=== PATIENT | male | born 1965 | race Caucasian/White ===

== ENCOUNTER → 2020-06-14 02:35 | Outpatient (CLI) | payer BC, SELFPAY ==
[2020-06-14 21:58] LABS: SARS-CoV-2 RNA PCR Negative
== END ==
PROVIDERS: PCP Physician Assistant; Visit Provider Internal Medicine Gastroenterology
DX: Z01.812 Encounter for preprocedural laboratory examination (principal); Z20.822 Contact with and (suspected) exposure to COVID-19
CPT/HCPCS: C9803; U0003; U0005

== ENCOUNTER 2020-06-17 00:53 | Day surgery (SDC) | payer BC, SELFPAY ==
[2020-05-29 11:37] VITALS: BMI 26.9
--- NOTE | 2020-06-14 09:34 | WPDANESEPPF ---
Anes - Initial Pre Proc Eval Procedure: Operation Date: 06/17/20 08:30 Proposed Procedures p Screening Colonoscopy - Lencho Angela MD Date/Time: 06/14/20 09:34 Surgeon: Lencho Angela MD Pre Op Diagnosis: Neoplasm Screening Patient Data Age: 54 Gender: M Height: 1.88 m Weight: 95 kg Allergies Allergy/AdvReac Type Severity Reaction Status Date / Time No Known Allergies Allergy Verified 06/17/20 07:06 Home Medications Medication Instructions Recorded Confirmed Type fluticasone propionate 50 1 spray NASAL DAILY 10/26/19 05/29/20 History mcg/actuation nasal spray,suspension lisinopril 20 1 tablet PO DAILY #90 tablet 10/26/19 05/29/20 Rx mg-hydrochlorothiazide 12.5 mg tablet loratadine 10 mg tablet 10 mg PO DAILY 10/26/19 05/29/20 History Patient hx anesthesia problems: none Family hx anesthesia problems: none PMFSH Past Medical History Medical History Allergies BMI 26.0-26.9,adult Colon cancer screening History of colon polyps Mixed hyperlipidemia Primary hypertension Prostate cancer screening Seasonal allergies Family History Family History Father CHF (congestive heart failure) Grandparent Heart failure Grandparent Heart failure Grandparent Acute myocardial infarction Social History Social History Smoking status: Never smoker Alcohol intake: current Drinks per week: 4 Substance use: never Substance use type: does not use Living arrangements: with family Spiritual care concerns: No Anes - Eval Final PreProcedure Day of Procedure 06/14/20 09:34 Patient weight: overweight Heart: regular rate and rhythm Lungs: clear to auscultation and normal air movement Airway: Mallampati scale class II Neurological: alert and oriented Last oral intake: >/= 8 hours ASA classification: II Emergent: no Anesthetic plan: proceed Anesthesia type and monitoring: general GIVS and standard monitoring Informed Consent: The patient's anesthetic plan and its attendant risks and benefits were discussed with the patient/family/POA. Questions were solicited and answers provided to the satisfaction of the patient/family/POA.
[2020-06-17 07:08] VITALS: BP 129/83; PULSE 78; RESP 18; TEMP 36.1; O2SAT 98
[2020-06-17] MEDS: LACTATED RINGERS 1,000 ML 150 ML IV CONT (07:17)
--- NOTE | 2020-06-17 08:13 | PM.HPGS ---
History of Present Illness History of Present Illness Consent: Risks, benefits, and alternatives have been discussed and questions answered. Patient agrees to proceed with procedure. Chief complaint: Neoplasm Screening Narrative: Haresh Guerrier is a 54 year old male with colon polyps 5 years ago. Review of Systems Constitutional: Constitutional: Denies headache(s) and Denies weakness Eyes: Eyes: Denies blurry vision ENT: Reports Normal hearing present, Denies headache(s) and Denies neck pain Cardiovascular: Cardiovascular: Denies chest pain and Denies dyspnea Respiratory: Respiratory: Denies dyspnea Gastrointestinal: Gastrointestinal: Reports no additional gastrointestinal complaints Genitourinary: Genitourinary: Denies dysuria Musculoskeletal: Musculoskeletal: Denies neck pain Integumentary/Breasts: Skin/Breast: Denies dry skin Neurologic: Reports Normal hearing present, Denies headache(s) and Denies weakness Psychiatric: Psychiatric: Denies anxiety Endocrine: Endocrine: Denies change in body appearance Hematologic/Lymphatic: Hematologic/Lymphatic: Denies easy bleeding Allergic/Immunologic: Allergic/Immunologic: Denies urticaria PMFSH Past Medical History Medical History Allergies BMI 26.0-26.9,adult Colon cancer screening History of colon polyps Mixed hyperlipidemia Primary hypertension Prostate cancer screening Seasonal allergies Family History Family History Father CHF (congestive heart failure) Grandparent Heart failure Grandparent Heart failure Grandparent Acute myocardial infarction Social History Social History Smoking status: Never smoker Alcohol intake: current Drinks per week: 4 Substance use: never Substance use type: does not use Living arrangements: with family Spiritual care concerns: No Meds Home Medications and Allergies Home Medications Medication Instructions Recorded Confirmed Type fluticasone propionate 50 1 spray NASAL DAILY 10/26/19 05/29/20 History mcg/actuation nasal spray,suspension lisinopril 20 1 tablet PO DAILY #90 tablet 10/26/19 05/29/20 Rx mg-hydrochlorothiazide 12.5 mg tablet loratadine 10 mg tablet 10 mg PO DAILY 10/26/19 05/29/20 History Allergies Allergy/AdvReac Type Severity Reaction Status Date / Time No Known Allergies Allergy Verified 06/17/20 07:06 Vital Signs Vital Signs - 24 hr 06/17/20 07:08 Temperature 97.0 F L Pulse Rate 78 Respiratory Rate 18 Blood Pressure 129/83 Pulse Oximetry 98 Exam Const: General: comfortable and no acute distress HENMT: General nose exam: Normal nares present Eyes: General: appearance normal, both eyes and all related structures Neck: Neck: no JVD Resp: Auscultation: clear to auscultation bilaterally Cardio: Rate: regular rate Rhythm: regular rhythm GI: Inspection: non-distended GI Palp: Yes Soft to palpation Skin: General skin exam: normal color Neuro: General: gait normal Speech: normal speech Extrem: General: normal to inspection Psych: Mental Status: mental status grossly normal Assessment and Plan Assessment and plan (1) History of colon polyps: Code(s): Z86.010 - Personal history of colonic polyps Status: Acute Assessment and Plan: proceed with colonoscopy
[2020-06-17 08:40] VITALS: BP 114/75; PULSE 73; RESP 22; O2SAT 98
[2020-06-17 08:50] VITALS: BP 124/87; PULSE 68; RESP 15; O2SAT 100
[2020-06-17 09:00] VITALS: BP 121/88; PULSE 65; RESP 16; O2SAT 100
== END 2020-06-17 09:09 | disposition home or self-care (01) ==
PROVIDERS: PCP Physician Assistant; Visit Provider Internal Medicine Gastroenterology
PROC: 0DJD8ZZ Inspection of Lower Intestinal Tract, Via Natural or Artificial Opening Endoscopic (ICD-10-PCS; CPT 45378; principal; 2020-06-17 08:30)
DX: Z12.11 Encounter for screening for malignant neoplasm of colon (principal); D12.3 Benign neoplasm of transverse colon; E78.2 Mixed hyperlipidemia; I10 Essential (primary) hypertension; J30.2 Other seasonal allergic rhinitis; Z86.010 Personal history of colon polyps
CPT/HCPCS: 45385; 88305; J2704; J7120

== ENCOUNTER 2021-04-26 18:36 | Inpatient (IN) | payer BC, SELFPAY ==
[2021-04-26] VITALS (19 sets, daily range): BP systolic 102–139; BP diastolic 81–102; PULSE 105–180; RESP 9–18; TEMP 37–37.2; O2SAT 93–99
--- NOTE | ~2021-04-26 | XR_ITS ---
EXAMINATION: XR chest 1V portable EXAM DATE: 04/26/2021 19:00 INDICATION: Tachycardia, atrial fibrillation, dizziness. History of hypertension. TECHNIQUE: Portable AP frontal chest x-ray was obtained. There is no prior study for comparison. FINDINGS: The lungs are clear. There are no pleural effusions. The cardiomediastinal silhouette is within normal limits. There is no pneumothorax suspected. The bones and soft tissues are unremarkab le. IMPRESSION: No acute cardiopulmonary findings. Reviewed, dictated and finalized at location A. RNED CASE INSPECTOR
--- NOTE | 2021-04-26 18:37 | ECG_ITS ---
Measurements Intervals [place] Rate: 178 P: [place]: 0 QRS: 67 QRSD: 96 T: 44 QT: 250 QTc: 431 Interpretive Statements ATRIAL FIBRILLATION WITH RAPID VENTRICULAR RESPONSE INCOMPLETE RIGHT BUNDLE BRANCH BLOCK BORDERLINE R WAVE PROGRESSION, ANTERIOR LEADS BORDERLINE ST-T WAVE ABNORMALITY- INF/LAT LEADS ABNORMAL ECG Electronically Signed On 04-26-2021 19:15:21 HAY SORTER by Fermin Diaz D.O.
[2021-04-26 19:05] LABS: Basophils Percent Auto 0.3 % (0.2-1.2); Eosinophils Absolute Auto 0.2 K/mm3 (0-0.3); Eosinophils Percent Auto 1.3 % (0-4.4); Hematocrit 50.8 % (42.0-52.0); Hemoglobin 18.2 g/dL (14.0-18.0); Immature Granulocyte Absolute 0.04 K/mm3 (0.00-0.031); Immature Granulocyte Percent A 0.3 % (0-0.5); Lymphocytes Percent Auto 32.7 % (18.3-44.2); Mean Corpuscular HGB Conc 35.8 g/dl (32-36); Mean Corpuscular Hemoglobin 33.4 pg (26-34); Mean Corpuscular Volume 93.2 fl (80-100); Mean Platelet Volume 9.1 fl (7.4-10.4); Monocytes Absolute Auto 1.2 K/mm3 (0.1-0.6); Neutrophils Absolute Auto 6.6 K/mm3 (1.3-6.7); Neutrophils Percent Auto 55.4 % (45.5-73.1); Platelet Count Result 226 k/mm3 (150-375); Red Blood Count 5.45 M/mm3 (4.6-6.20); Red Cell Distribution Width 12.1 % (11.5-14.5); White Blood Count 11.9 K/mm3 (4.5-10.0)
[2021-04-26] MEDS: dilTIAZem HCl INJ 25 MG/5 ML VIAL 15 MG IV PUSH (19:05)
[2021-04-26 19:15] LABS: Alanine Aminotransferase 45 U/L (4-50); Albumin Level 4.2 g/dL (3.5-5.1); Alkaline Phosphatase 57 U/L (38-126); Anion Gap 11 mmol/L (8-16); Aspartate Amino Transferase 30 U/L (17-59); Bilirubin,Total 0.4 mg/dL (0.2-1.3); Blood Urea Nitrogen 19 mg/dL (9-20); Calcium 9.5 mg/dL (8.4-10.2); Carbon Dioxide 22 mmol/L (22-30); Chloride 105 mmol/L (98-107); Estimated CRCL calculation 92 ml/min; Estimated Glomerular Filt Rate > 60; Glucose 116 mg/dL (65-110); Lipase 223 U/L (23-300); Potassium 3.8 mmol/L (3.4-5.0); Sodium 138 mmol/L (137-145)
[2021-04-26 19:17] LABS: INR 0.8; Prothrombin Time 11.2 Seconds (11.1-14.7)
[2021-04-26 19:27] LABS: Troponin I < 0.012 ng/mL (0.000-0.034)
--- NOTE | 2021-04-26 19:33 | ED.ARRPALP ---
HPI - Arrhythmia/Palpitations General Chief Complaint: Arrhythmia/Palpitations Stated Complaint: HR 160s Time Seen by Provider: 04/26/21 18:59 History of Present Illness HPI narrative: Patient is a 55-year-old male who presents to the ER with heart palpitations. Symptoms began around 5:30 PM while sitting watching TV. He began feeling flushed. He was having lightheadedness. No chest pain or pressure. No shortness of breath. He performed an EKG on his iWatch which told him he is in atrial fibrillation and that his heart rate was in the 170s. Reports his heart rate was getting as high as 190 bpm. He called his PCP who recommended he come to the ER to be evaluated. No aggravating or alleviating factors. Related Data Home Medications Medication Instructions Recorded Confirmed fluticasone propionate 50 1 spray NASAL DAILY 10/26/19 04/23/21 mcg/actuation nasal spray,suspension loratadine 10 mg tablet 10 mg PO DAILY 10/26/19 04/23/21 Allergies Allergy/AdvReac Type Severity Reaction Status Date / Time No Known Allergies Allergy Verified 04/23/21 15:50 Review of Systems Review of Systems: All systems reviewed & are unremarkable except as noted in HPI and below Constitutional: Constitutional: Denies chills, Denies fever(s) and Denies weakness ENT: Denies nasal congestion and Denies sore throat Cardiovascular: Cardiovascular: Denies chest pain and Reports rapid heart rate Respiratory: Respiratory: Denies cough and Denies dyspnea Gastrointestinal: Gastrointestinal: Denies abdominal pain, Denies nausea and Denies vomiting PMFSH Past Medical History Medical History Allergies BMI 26.0-26.9,adult Colon cancer screening History of colon polyps Mixed hyperlipidemia Primary hypertension Prostate cancer screening Seasonal allergies Family History Family History Father CHF (congestive heart failure) Grandparent Heart failure Grandparent Heart failure Grandparent Acute myocardial infarction Social History Social History (Updated 04/23/21 @ 15:56 by Maureen Sidhu CMA) Smoking status: Never smoker Alcohol intake: current Drinks per week: 5 Substance use: never Substance use type: does not use Spiritual care concerns: No Exam Narrative: GENERAL: Well-appearing, well-nourished, and in no acute distress. HEAD: Normocephalic, atraumatic. EYES: PERRL and EOMI. CHEST: Clear to auscultation. No respiratory distress. HEART: Tachycardic rhythm that is regular. Normal peripheral pulses. ABDOMEN: Soft, nontender, nondistended. EXTREMITIES: Normal range of motion. No edema. SKIN: Warm, dry, no rash. NEURO: Alert and oriented x3. PSYCH: Normal mood and affect. Course Reevaluation(s) Reevaluation #1: Discussed case with Dr. Og with cardiology. He would like patient to receive sotalol 80 mg x 1 since diltiazem did not successfully control his rate. He would also like him to receive sotalol 80 mg twice daily after this. Furthermore he would like patient to be started on Xarelto 20 mg but the first dose coming right now. No Lovenox recommended. Recommends admission for observation hospital service. Date: 04/26/21 Time: 19:51 Vital Signs Vital signs: Vital Signs Pulse Rate 176 H 04/26/21 18:46 Respiratory Rate 16 04/26/21 18:46 Pulse Oximetry 99 04/26/21 18:46 Temperature 98.6 F 04/26/21 18:47 Pulse Rate 109 H 04/26/21 21:46 Respiratory Rate 16 04/26/21 21:45 Blood Pressure 105/89 04/26/21 21:45 Pulse Oximetry 95 04/26/21 21:46 MDM - Arrhythmia/Palpitations Lab Data Result diagrams: 04/26/21 18:54 04/26/21 18:54 Labs: Lab Results 04/26/21 04/26/21 04/26/21 Range/Units 18:54 18:54 18:54 WBC 11.9 H (4.5-10.0) K/mm3 RBC 5.45 (4.6-6.20) M/mm3 Hgb 18.2 H (1
[2021-04-26] MEDS: SODIUM CHLORIDE 0.9% IV 1,000 ML 999 ML IV CONT (20:20)
[2021-04-26] MEDS: SOTALOL HCL 80 MG TABLET PO (20:26)
[2021-04-26] MEDS: RIVAROXABAN 20 MG TABLET PO (20:29)
[2021-04-26 22:21] LABS: Troponin I 0.012 ng/mL (0.000-0.034)
[2021-04-27] VITALS (19 sets, daily range): BP systolic 91–145; BP diastolic 68–90; PULSE 64–110; RESP 16–20; TEMP 35.7–36.6; O2SAT 96–98; BMI 26.5
[2021-04-27 01:40] LABS: Troponin I < 0.012 ng/mL (0.000-0.034)
--- NOTE | 2021-04-27 02:17 | ECG_ITS ---
Measurements Intervals [place] Rate: 74 P: 23 [place]: 168 QRS: 24 QRSD: 105 T: 35 QT: 371 QTc: 413 Interpretive Statements SINUS RHYTHM INCOMPLETE RIGHT BUNDLE BRANCH BLOCK BORDERLINE ECG Electronically Signed On 04-27-2021 10:41:41 DIETETIC TECH by Fermin Diaz D.O.
--- NOTE | 2021-04-27 04:41 | ECG_ITS ---
Measurements Intervals [place] Rate: 103 P: [place]: 0 QRS: 29 QRSD: 101 T: 19 QT: 339 QTc: 445 Interpretive Statements ATRIAL FIBRILLATION WITH RAPID VENTRICULAR RESPONSE INCOMPLETE RIGHT BUNDLE BRANCH B ABNORMAL [place] Electronically Signed On 04-27-2021 10:41:23 COUNTER INTELLIGENCE by Fermin Diaz D.O.
--- NOTE | 2021-04-27 08:43 | PM.IMHP ---
H&P: HPI History of Present Illness Date/Time: 04/27/21 08:43 Chief Complaint: Palpitation Narrative: Patient is 55 years old male with history of hypertension was admitted through the emergency room for atrial fibrillation with rapid ventricle response. According to the patient yesterday in the evening he started having palpitation and heart rate went up to 170, he started feeling disease who decided come to the emergency room. At present patient is feeling better denies any shortness of breath, no chest pain, no abdominal pain, no nausea, no vomiting, no fever. Patient was given sotalol in the emergency room and 1 dose of Xarelto was also given and was transferred to floor for further management . Cardiology was consulted in the ER. Review of Systems Review of Systems: All systems reviewed & are unremarkable except as noted in HPI and below (the history and physical examination) [facility] Past Medical History Medical History Allergies BMI 26.0-26.9,adult Colon cancer screening History of colon polyps Mixed hyperlipidemia Primary hypertension Prostate cancer screening Seasonal allergies Family History Family History Father CHF (congestive heart failure) Grandparent Heart failure Grandparent Heart failure Grandparent Acute myocardial infarction Mother Hypertension Mother Afib Social History Social History Smoking status: Never smoker Second hand tobacco smoke exposure: Yes (as a child) Alcohol intake: current Drinks per week: 6 Substance use: never Substance use type: does not use Spiritual care concerns: No Meds Home Medications and Allergies Home Medications Medication Instructions Recorded Confirmed Type fluticasone propionate 50 1 spray NASAL DAILY 10/26/19 04/26/21 History mcg/actuation nasal spray,suspension loratadine 10 mg tablet 10 mg PO DAILY PRN 10/26/19 04/26/21 History lisinopril 20 1 tablet PO DAILY #90 tablet 03/09/21 04/26/21 Rx mg-hydrochlorothiazide 12.5 mg tablet acetaminophen [Tylenol] 650 mg PO Q4H PRN 04/26/21 04/27/21 History multivitamin [Daily Multivitamin] 1 tablet PO DAILY 04/26/21 04/27/21 History pseudoephedrine HCl [Sudafed] 30 mg PO Q4-6H PRN 04/26/21 04/27/21 History Allergies Allergy/AdvReac Type Severity Reaction Status Date / Time No Known Allergies Allergy Verified 04/26/21 23:57 Vital Signs Vital Signs - 24 hr 04/26/21 18:46 04/26/21 18:47 04/26/21 18:48 Temperature 37.0 C Pulse Rate 176 H 165 H 180 H Respiratory Rate 16 9 L 16 Blood Pressure 138/97 H Pulse Oximetry 99 96 98 04/26/21 19:00 04/26/21 19:01 04/26/21 19:15 Temperature Pulse Rate 163 H 177 H 118 H Respiratory Rate 12 12 13 Blood Pressure 104/81 128/102 H Pulse Oximetry 95 95 04/26/21 19:16 04/26/21 19:30 04/26/21 19:31 Temperature Pulse Rate 113 H 118 H 125 H Respiratory Rate 12 12 13 Blood Pressure 114/81 Pulse Oximetry 95 93 04/26/21 19:59 04/26/21 20:26 04/26/21 20:36 Temperature Pulse Rate 163 H 135 H 132 H Respiratory Rate 15 Blood Pressure Pulse Oximetry 96 96 04/26/21 21:29 04/26/21 21:30 04/26/21 21:31 Temperature Pulse Rate 124 H 117 H 126 H Respiratory Rate 14 13 18 Blood Pressure 102/81 Pulse Oximetry 97 95 96 04/26/21 21:45 04/26/21 21:46 04/26/21 23:23 Temperature 37.2 C Pulse Rate 118 H 109 H 108 H Respiratory Rate 16 18 Blood Pressure 105/89 108/82 Pulse Oximetry 95 96 04/26/21 23:35 04/27/21 00:00 04/27/21 01:40 Temperature 36.2 C L Pulse Rate 105 H 109 H 82 Respiratory Rate 18 Blood Pressure 115/85 Pulse Oximetry 96 04/27/21 03:44 04/27/21 04:00 04/27/21 06:00 Temperature 35.9 C L Pulse Rate 73 71 72 Respiratory Rate 16 Blood Pressure 91/68 L Pulse Oximetry 96
[2021-04-27] MEDS: SOTALOL HCL 80 MG TABLET PO ×2 (09:01→21:09)
[2021-04-27 09:49] LABS: Cholesterol 181 mg/dL (0-200); HDL Direct 27 mg/dL; Triglycerides 359 mg/dL (<150)
[2021-04-27 09:59] LABS: LDL Cholesterol Direct 75 mg/dL
--- NOTE | 2021-04-27 10:05 | PM.CNCAR ---
Assessment and Plan Additional Plan 55-year-old man who has longstanding hypertension being treated with Mushtaq inhibitor and thiazide diuretic presents with new onset symptomatic atrial fib last evening. He has been started on sotalol and Xarelto. He is currently back in sinus rhythm and is asymptomatic. I am going to resume his MUSHTAQ-inhibitor at a reduced dosage since we are adding sotalol to his regimen and order an echocardiogram. Will ensure that thyroid function studies have been ordered as well. Anticipate another 24-36 hours in the hospital if he maintains sinus rhythm. Alexander Og MD [facility] History of Present Illness History of Present Illness Consult date/time: 04/27/21 10:05 Consult reason: atrial fibrillation Reason For Visit: afib rvr Narrative: This is a very pleasant 55-year-old man I am seeing at the request of the hospitalist's today because of the new onset of atrial fibrillation. This is a gentleman without any previous cardiac history he has a very good historian. He states that he has been in his usual state of good health when yesterday he noted the onset of tachycardia and palpitations. Fortuitously he received an [employer] watch for [employer] and he knew he was able to check his cardiac rhythm with that device last night he decided to perform that check and found out that he was in atrial fibrillation. He laid down to rest for a while hoping that it would resolve spontaneously when it did not he called his physician who advised him to come to the emergency room for evaluation. On arrival here he was in AFib with a very rapid ventricular response. I was then consulted on the telephone. Because of the obvious new onset of atrial fibrillation I started him on sotalol and Xarelto. He is comfortable this morning and in sinus rhythm. He denies any symptoms of exertional chest pain pressure or heaviness he denies any orthopnea PND or edema. He has never had a syncopal episode. He does have hypertension which he states has been present for probably a decade or 2. His previous physicians have elected to treat him with diet and exercise. For the last couple of years he has been placed on anti hypertensive therapy with lisinopril/hydrochlorothiazide. He does not known to have dyslipidemia or diabetes he is a lifelong nonsmoker. Electrocardiogram in sinus rhythm is essentially normal Review of Systems Constitutional: Constitutional: Reports no additional constitutional complaints Eyes: Eyes: Reports no additional eye complaints ENT: Reports system reviewed and no additional complaints, except as documented Cardiovascular: Cardiovascular: Reports palpitations Respiratory: Respiratory: Reports no additional respiratory complaints Gastrointestinal: Gastrointestinal: Reports no additional gastrointestinal complaints Musculoskeletal: Musculoskeletal: Reports no additional musculoskeletal complaints Integumentary/Breasts: Skin/Breast: Reports system reviewed and no additional complaints, except as docu Neurologic: Reports system reviewed and no additional complaints, except as documented Endocrine: Endocrine: Reports no additional endocrine complaints Hematologic/Lymphatic: Hematologic/Lymphatic: Reports no additional hematologic/lymphatic complaints Allergic/Immunologic: Allergic/Immunologic: Reports no additional allergic/immunologic complaints [facility] Past Medical History Medical History Allergies BMI 26.0-26.9,adult Colon cancer screening History of colon polyps Mixed hyperlipidemia Primary hypertension Prostate cancer screening Seasonal allergies Family History Family History Father CHF (congestive heart failure) Grandparent Heart failure Grandparent Heart failure Grandparent Acute myocardial infarction Mother Hypertension Mother Afib Social History Social Histo
--- NOTE | 2021-04-27 13:20 | ECG_ITS ---
Measurements Intervals [place] Rate: 74 P: 52 [place]: 167 QRS: 48 QRSD: 120 T: 56 QT: 390 QTc: 433 Interpretive Statements SINUS RHYTHM INCOMPLETE RIGHT BUNDLE BRANCH BLOCK BORDERLINE ECG Electronically Signed On 04-27-2021 17:28:12 BUSINESS CONTINUITY SPECIALIST by Fermin Diaz D.O.
[2021-04-27] MEDS: RIVAROXABAN 20 MG TABLET PO (18:08)
--- NOTE | 2021-04-27 23:25 | ECG_ITS ---
Measurements Intervals [place] Rate: 70 P: 53 [place]: 176 QRS: 43 QRSD: 110 T: 53 QT: 397 QTc: 428 Interpretive Statements SINUS RHYTHM BASELINE ARTIFACT- I, II, III NORMAL ECG Electronically Signed On 04-28-2021 6:17:58 POTTERY MACHINE OPERATOR by Fermin Diaz D.O.
[2021-04-28] VITALS (11 sets, daily range): BP systolic 128–142; BP diastolic 77–100; PULSE 66–80; RESP 18–20; TEMP 36.3–37; O2SAT 97–98
--- NOTE | 2021-04-28 | ECHO_ITS ---
Patient Info Name: Haresh Guerrier Age: 55 years : 1965 Gender: Male Ht: 74 in Wt: 206 lbs BSA: 2.22 m2 HR: 80 bpm BP: 128 / 77 mmHg Heart Rhythm: Sinus Rhythm Technical Quality: Good Exam Date: 04/28/2021 11:09 AM Exam Location: [facility] Exam Room: 209 Patient Status: Inpatient Admit Date: 04/27/2021 Staff Ordering Physician: Cesario Barba MD Basin Operator: Colette Figueroa RDCS Attending Provider: Emma Ritter DO Referring Physician: Jameson MENDOZA; Exam Type: CA echo doppler color flow Study Info Indications - AFIB Complete two-dimensional, color flow and Doppler transthoracic echocardiogram is performed. Summary 1. Complete two-dimensional, color flow and Doppler transthoracic echocardiogram is performed. 2. There is mild concentric increased left ventricular wall thickness. 3. Left ventricular systolic function is normal, estimated at 55-60%. 4. There is trace mitral valve regurgitation. 5. No evidence of atrial dilation. Left Ventricle Left ventricular chamber dimension is normal. Left ventricular systolic function is normal, estimated at 55-60%. There is mild concentric increased left ventricular wall thickness. The left ventricular diastolic function is grade I diastolic dysfunction. Right Ventricle Right ventricular chamber dimension is normal. Left Atria Left atrial chamber dimension is normal. Right Atria Right atrial chamber dimension is normal. Aortic Valve The aortic valve is normal. Pulmonic Valve The pulmonic valve is normal. Mitral Valve The mitral valve has normal leaflets. There is trace mitral valve regurgitation. Tricuspid Valve The tricuspid valve leaflets are normal. Pericardium/Pleural The pericardium appears normal. Aorta The aortic root size at the sinus of Valsalva is normal. Left Ventricular Outflow Tract Name Value Normal LVOT 2D LVOT Diameter 2.1 cm LVOT Doppler LVOT Peak Gradient 3 mmHg LVOT Mean Gradient 2 mmHg LVOT VTI 18 cm LVOT VTI/AV VTI Ratio 0.9 LVOT Stroke Volume 61 ml LVOT CO 12.4 l/min LVOT CI 5.6 l/min/m2 Pulmonic Valve Name Value Normal PV Doppler PV Peak Gradient 3 mmHg Mitral Valve Name Value Normal MV Doppler MV Decel Haines 251 cm/s2 MV PHT 59 ms MV Area (PHT) 3.7 cm2 4
--- NOTE | 2021-04-28 09:20 | PM.DS ---
DS: Admitting Diagnosis Discharge Date April 28, 2021 Admitting Diagnosis Atrial fibrillation with rapid ventricular response DS: Discharge Diagnosis Discharge Diagnosis (1) Atrial fibrillation with rapid ventricular response: Code(s): I48.91 - Unspecified atrial fibrillation Status: Acute Assessment and Plan: Will continue with rate control and anticoagulation. Cardiology on consult . Will check lipid profile and TSH level. (2) Primary hypertension: Code(s): I10 - Essential (primary) hypertension Status: Acute Assessment and Plan: Stable on current medications. DS: Summary Hospital Course Reason for hospitalization: Palpitation Hospital Course: Patient was 5 years old male was admitted complained of having palpitation. Patient was found to have atrial fibrillation with rapid response. Patient was given sotalol and heart rate was controlled. Xarelto was given as a blood thinner. Today patient is feeling better so patient discharged home in stable condition. Patient to follow-up primary care physician and Cardiology outpatient next week. Status at Discharge Cognitive/behavioral status at discharge: Stable Functional status at discharge: independent ambulation Overall status at discharge: patient is back to baseline Time Spent with Patient Time attestation: Total time spent providing and/or coordinating discharge services: Time spent: Less than 30 minutes Exam Narrative: GENERAL: Well-appearing, well-nourished, and in no acute distress. HEAD: Normocephalic, atraumatic. EYES: PERRL and EOMI. CHEST: Clear to auscultation. No respiratory distress. HEART: Tachycardic rhythm that is irregular. Normal peripheral pulses. ABDOMEN: Soft, nontender, nondistended. EXTREMITIES: Normal range of motion. No edema. SKIN: Warm, dry, no rash. NEURO: Alert and oriented x3. PSYCH: Normal mood and affect. DS: Data Data Completed and Pending Labs on day of discharge: Labs from last 24 hours 04/27/21 04/27/21 09:15 09:15 Triglycerides 359 H Cholesterol 181 LDL Cholesterol Direct 75 HDL Direct 27 TSH 1.760 Discharge Plan Discharge Attending physician on discharge: Cesario aBrba Consulting providers: Alexander Og Discharging Clinician: Cesario Barba Patient Disposition: Home, Self-Care Activity: as tolerated Diet: as tolerated and heart healthy Patient Instructions: Antibiotic Form, Sotalol (By mouth), A-fib (Atrial Fibrillation) (DC) Stand Alone Forms: General Discharge Information Follow-up/Referrals: Jumana Hays MD [Primary Care Provider] - Alexander Og MD [Physician] - Discharge Medications: New lisinopril 10 mg Tablet 10 mg PO DAILY Qty: 30 RF: 0 sotalol 80 mg Tablet 80 mg PO Q12HR Qty: 60 RF: 0 Xarelto 20 mg Tablet 20 mg PO DAILY@1700 Qty: 30 RF: 0 Continued fluticasone propionate [Flonase Allergy Relief] 50 mcg/actuation spray,suspension 1 spray NASAL DAILY RF: 0 multivitamin [Daily Multivitamin] Tablet 1 tablet PO DAILY RF: 0 Discontinued loratadine [Claritin] 10 mg tablet 10 mg PO DAILY PRN (Reason: congestion) RF: 0 acetaminophen [Tylenol] 325 mg Tablet 650 mg PO Q4H PRN (Reason: Pain (Scale Score 1-3)) RF: 0 pseudoephedrine HCl [Sudafed] 30 mg Tablet 30 mg PO Q4-6H PRN (Reason: Congestion) RF: 0 lisinopril-hydrochlorothiazide 20-12.5 mg tablet 1 tablet PO DAILY Qty: 90 RF: 0 Date of admission: 04/27/21 09:19 Primary Care Provider: Jumana Hays Admitting Provider: Emma Ritter Attending physician on admission: Emma Ritter Condition: Stable
[2021-04-28] MEDS: lisinopriL 10 MG TABLET PO (09:38)
[2021-04-28] MEDS: SOTALOL HCL 80 MG TABLET PO (09:38)
--- NOTE | 2021-04-28 11:22 | PM.PNCARD ---
Progress Note: A&P Additional Plan 55-year-old man with longstanding hypertension admitted with paroxysmal symptomatic atrial fibrillation. Currently in sinus rhythm after sotalol has been started. He is tolerating medication well. He has been systemically anticoagulated with Xarelto. Echocardiogram today demonstrates some very small amount of MR no other abnormalities. I told the patient that I believe he can be discharged for outpatient follow-up of his atrial fib. Should be continued on sotalol 80 mg twice daily as well as Xarelto. As I mentioned in my note I reduced his lisinopril to 10 mg daily. I will see him in the office in 3-4 weeks for follow-up. Thank you for consulting me to see this nice man Alexander Og MD [facility] Subjective Date/time seen: Date of service: 04/28/21 11:22 Interval history: Follow-up visit in this 55-year-old man with: Hypertension presenting with new onset of symptomatic atrial fibrillation. After starting treatment with sotalol he is medically converted to sinus rhythm and become asymptomatic. He is stable since conversion ECG looks fine this morning QT interval is normal. Echocardiogram shows a trivial jet of mitral valve regurgitation otherwise unremarkable exam. Exam Const: General: comfortable and no acute distress HENMT: Mouth: Yes moist mucous membranes Eyes: Sclera: sclerae normal Pupils: Equal, round and reactive pupils present Neck: Neck: supple and no JVD Resp: Effort & Inspection: normal respiratory effort Auscultation: clear to auscultation bilaterally Cardio: Rate: regular rate Rhythm: regular rhythm GI: GI Palp: Yes Soft to palpation Auscultation: normal bowel sounds Neuro: Cognition (Neuro): normal cognition Extrem: General: normal to inspection Objective Data Vital Signs Vital Signs: Vital Signs - 24 hr 04/27/21 12:00 04/27/21 12:29 04/27/21 14:00 Temperature 35.8 C L Pulse Rate 64 65 70 Respiratory Rate 20 Blood Pressure 136/81 Pulse Oximetry 98 04/27/21 16:00 04/27/21 16:28 04/27/21 18:00 Temperature 36.0 C L Pulse Rate 70 78 75 Respiratory Rate 20 Blood Pressure 126/82 Pulse Oximetry 97 04/27/21 20:00 04/27/21 21:09 04/27/21 22:00 Temperature 36.4 C L Pulse Rate 83 87 81 Respiratory Rate 20 Blood Pressure 137/78 Pulse Oximetry 96 04/27/21 23:52 04/28/21 00:00 04/28/21 02:00 Temperature 36.6 C Pulse Rate 77 66 72 Respiratory Rate 20 Blood Pressure 145/90 H Pulse Oximetry 97 04/28/21 03:45 04/28/21 04:00 04/28/21 06:00 Temperature 36.6 C Pulse Rate 80 76 75 Respiratory Rate 20 Blood Pressure 128/77 Pulse Oximetry 97 04/28/21 08:26 04/28/21 09:38 Temperature 36.3 C L Pulse Rate 73 79 Respiratory Rate 20 Blood Pressure 142/100 H Pulse Oximetry 98 Intake/Output Intake/Output: Intake & Output 04/25/21 04/26/21 04/27/21 04/28/21 23:59 23:59 23:59 23:59 Intake Total 1000 1220 660 Output Total 2276 450 Balance 1000 -1056 210 Meds/Results Medications: Active Medications Generic Name Dose Route Start Last Admin Trade Name Freq PRN Reason Stop Dose Admin Acetaminophen 650 mg 04/26/21 21:39 Acetaminophen 325 Mg Tablet PO Q4H PRN Mild Pain (1-3) or Fever Hydrocodone Bitart/Acetaminophen 1 tab 04/26/21 21:39 Hydrocodone/Acetaminophen (*Crx) 5-325 Mg Tablet PO Q4H PRN Pain Rated 4-6 Lisinopril 10 mg 04/28/21 09:00 04/28/21 09:38 Lisinopril 10 Mg Tablet PO 10 mg DAILY JUSTYNA Administration Morphine Sulfate 4 mg 04/26/21 21:39 Morphine Sulfate (*Crx) 4 Mg/Ml Inj IV PUSH Q2H PRN Pain Rated 7-10 Promethazine HCl 12.5 mg 04/26/21 21:39 Promethazine Hcl 25 Mg/Ml Ampul IV PUSH Q6H PRN Nausea Rivaroxaban 20 mg 04/27/21 17:00 04/27/21 18:08 Rivaroxaban 20 Mg Tablet PO 20 mg DAILY@1700 [facility] Administration Sotalol HCl 80 mg 04/27/21 09:00 04/28/21 09:38 Sotalol Hcl
== END 2021-04-28 13:40 | disposition home or self-care (01) | DRG 310 ==
LOC: ANHED 22:44 → ANHIMU 23:00
PROVIDERS: Admitting Provider Internal Medicine; Emergency Provider Emergency Medicine; PCP Family Medicine; Visit Provider Internal Medicine
DX: I48.0 Paroxysmal atrial fibrillation (principal); I10 Essential (primary) hypertension; E78.2 Mixed hyperlipidemia
CPT/HCPCS: 36415; 71045; 80053; 80061; 83690; 84443; 84484; 85025; 85610; 85730; 93005; 93306; 96361; 96374; 99285; A9270; G0378; J7030